=== PATIENT | female | born 1965 | race Two or more races ===

== ENCOUNTER 2023-01-19 13:22 | Emergency (ER) | payer MEDICAID ==
[~2023-01-19] VITALS: Ht 147.3 cm; Wt 71.8 kg
[2023-01-19 13:31] VITALS: BP 133/78
[2023-01-19] MEDS ORDERED: ASPI-1450 PO (13:36)
[2023-01-19] MEDS ORDERED: METF-1211 PO (13:36)
[2023-01-19] MEDS ORDERED: ATOR40TA28 PO (13:36)
[2023-01-19 13:41] LABS: COVID AG,FIA SOURCE NASAL SWAB
[2023-01-19 14:01] LABS: INFLUENZA TYPE A NEGATIVE FOR TYPE A (NEGATIVE); INFLUENZA TYPE B NEGATIVE FOR TYPE B (NEGATIVE)
[2023-01-19] MEDS ORDERED: AZIT250T9 PO (15:00)
== END 2023-01-19 15:14 | disposition home or self-care (01) ==
LOC: EMS 13:26
DX: U07.1 COVID-19 (principal); R05.9 Cough, unspecified; E11.9 Type 2 diabetes mellitus without complications; E78.00 Pure hypercholesterolemia, unspecified; I10 Essential (primary) hypertension; Z90.49 Acquired absence of other specified parts of digestive tract; Z20.822 Contact with and (suspected) exposure to COVID-19
CPT/HCPCS: 82962; 87804; 99283